=== PATIENT | female | born 1985 | race African-American/Black ===

== ENCOUNTER 2022-03-13 08:25 | Day surgery (SDC) | payer BC ==
[2022-03-10 14:16] VITALS: BMI 25.0
[2022-03-13] MEDS ORDERED: oxyCODONE HCL 5 MG TABLET PO PRN (10:15)
[2022-03-13] MEDS ORDERED: ONDANSETRON 4 MG/2 ML VIAL IVPUSH PRN (10:15)
[2022-03-13] MEDS ORDERED: LACTATED RINGERS SOLUTION 1,000 ML IV SCH (10:15)
[2022-03-13] MEDS ORDERED: MIDAZOLAM HCL 2 MG/2 ML SINGLE DOSE VIAL ONE (10:34)
[2022-03-13] MEDS ORDERED: DEXAMETHASONE SOD PHOSPHATE 4 MG/1 ML VIAL ONE ×2 (10:35→11:08)
[2022-03-13] MEDS ORDERED: LIDOCAINE HCL/PF 2% SDV 5ML VIAL ONE (10:35)
[2022-03-13] MEDS ORDERED: PROPOFOL 20 ML ONE ×3 (10:36→11:06)
[2022-03-13] MEDS ORDERED: BUPIVACAINE HCL/PF 2.5 MG/ML - 30 ML VIAL IJ ONE (10:41)
[2022-03-13] MEDS ORDERED: DEXTROSE 50%-WATER 25 GM/50 ML DISP.SYRIN ONE (11:08)
[2022-03-13] MEDS ORDERED: ACETAMINOPHEN 1000 MG/100 ML BAG IVPB ONE (11:51)
[2022-03-13] MEDS ORDERED: KETOROLAC TROMETHAMINE 30 MG/1 ML VIAL IVPUSH ONE (11:52)
[2022-03-13] MEDS ORDERED: FENTANYL CITRATE/PF 50 MCG/ML VIAL ONE (12:27)
[2022-03-13 12:40] VITALS: RESP 16
[2022-03-13 13:34] VITALS: PULSE 64; TEMP 96.7
[2022-03-13] MEDS ORDERED: ONDANSETRON 4 MG/2 ML VIAL ONE (13:35)
[2022-03-13] MEDS ORDERED: ONDANSETRON 4 MG/2 ML VIAL IVPUSH ONE (14:05)
[2022-03-13 14:14] VITALS: BP 107/70
== END 2022-03-13 14:20 | disposition home or self-care (01) ==
LOC: FASU 08:25
PROVIDERS: ATTEND Orthopaedic Surgery
PROC: 0SBC4ZZ Excision of Right Knee Joint, Percutaneous Endoscopic Approach (ICD-10-PCS; 2022-03-13)
PROC: 0SBC4ZZ Excision of Right Knee Joint, Percutaneous Endoscopic Approach (ICD-10-PCS; principal; 2022-03-13 11:20)
DX: S83.241A Other tear of medial meniscus, current injury, right knee, initial encounter (principal); S83.281A Other tear of lateral meniscus, current injury, right knee, initial encounter; S83.8X1A Sprain of other specified parts of right knee, initial encounter; M65.861 Other synovitis and tenosynovitis, right lower leg; X58.XXXA Exposure to other specified factors, initial encounter; Y93.9 Activity, unspecified; Y92.9 Unspecified place or not applicable
CPT/HCPCS: 84703; 94760